=== PATIENT | female | born 1990 | race Two or more races ===

== ENCOUNTER 2024-12-11 11:11 | Emergency (ER) | payer MEDICAID, SELFPAY ==
[2024-12-11 11:44] VITALS: BP 110/73; PULSE 74; RESP 18; TEMP 36.6; O2SAT 96; BMI 29.0
--- NOTE | 2024-12-11 12:01 | XR_ITS ---
Examination: CT abdomen with intravenous contrast CT pelvis with intravenous contrast 2-D coronal reconstructions 2-D sagittal reconstructions Date and time of exam:December 11, 2024 1517 hours INDICATIONS: Onset perineal pain difficulty having a bowel movement several days. CTDI: vol (mGy) 9.86 DLP: (mGycm) 531 Technique: Multiple axial sections of the abdomen and pelvis have been obtained. 64 slice high-resolution scanner used. 3 mm axial sections have been obtained, post intravenous injection 60 cc [id number] 2-D sagittal, coronal reconstructions obtained. Low dose protocols were performed. One or more of the following dose reduction techniques were used; automated exposure control, adjustment of the mA and/or KV according to patient size, use of iterative reconstruction technique. Findings: No focal liver or splenic lesion No gallstones No pancreatic or adrenal mass. No renal or ureteral calculi, no hydronephrosis 12 mm fat-containing umbilical hernia Normal appendix Anteverted uterus Right ovarian 20 mm follicular cyst Urinary bladder intact Right labial low density area, image 231, measuring 18 x 10 mm Osseous structures intact IMPRESSION: 18 x 10 mm right labial low density mass most consistent with small abscess
--- NOTE | 2024-12-11 12:02 | PD.EDADULT ---
ED General RME/HPI General Chief complaint: General Adult/Misc Complain Stated complaint: SEVERE PAIN WHILE HAVING A BM Time Seen by Provider: 12/11/24 11:23 Arrival date/time: 12/11/24 11:11 RME / HPI RME / HPI narrative: 34-year-old female patient came in for evaluation regarding perineal pain and swelling. Patient has been having pain and swelling for several days, associated with painful bowel movement. Patient denies any blood in the stool denies any fever denies any dysuria denies any hematuria denies any other complaints patient was seen by PCP and was advised to do pelvic ultrasound. Still waiting for the ultrasound. Related Data Previous Rx's ?Medication ?Instructions ?Recorded amoxicillin 875 mg-potassium 1 tab PO BID #14 tabs 12/11/24 clavulanate 125 mg tablet ibuprofen 800 mg tablet 800 mg PO TID PRN pain #30 tabs 12/11/24 Allergies Allergy/AdvReac Type Severity Reaction Status Date / Time No Known Allergies Allergy Verified 12/11/24 11:15 Review of Systems Review of Systems Narrative Review of Systems: Review of system reviewed and within normal limits except mentioned in HPI ED Exam Narrative Physical exam: VITAL SIGNS: Reviewed. GENERAL APPEARANCE: Alert and interactive, follows commands, no acute distress, HEAD AND FACE: Non-traumatic. ENT: PERRL, pink conjunctivitis, eyelid no trauma, Mucous membrane moist. NECK: Supple, nontender, no nuchal rigidity. CHEST: No tenderness, no crepitus, no paradoxical movement, no retractions. LUNGS: Clear, well ventilated, symmetric, no rales, no wheezing, no ronchi, no stridor, good breath sounds bilaterally. HEART: Regular rate, regular rhythm, no murmur, no gallops. ABDOMEN: Soft, positive bowel sounds, nondistended, no guarding, nontender, no rebound, no masses, RECTAL: Deferred. GENITAL: Pelvic exam was done by me with a female nurse around all the time, patient is having perineal tenderness, no cyanosis noted no redness noted, palpable swelling noted. NEUROLOGICAL: Gross motor function intact sensory function intact, Appropriate for age. MUSCULOSKELETAL: low back nontender, full range of motion. EXTREMITIES: Nontender, full range of motion. SKIN: Color pink, dry, no rash, no lacerations, no abrasions, no contusions. LYMPHATICS: Deferred. Course Quality Measures none Orders Category Date Time Status CT Screening NOW Care 12/11/24 12:[address] abdomen pelvis w con Stat Exams 12/11/24 12:01 Completed CBC Stat Lab 12/11/24 12:35 Completed Comprehensive Metabolic Panel Stat Lab 12/11/24 12:35 Completed HCG Qualitative,Urine Stat Lab 12/11/24 12:22 Completed Prothrombin Time with INR Stat Lab 12/11/24 12:35 Completed UA, C/S IF [Urinalysis, C/S if Indicated] Stat Lab 12/11/24 12:22 Completed Doxycycline Inj [Vibramycin Inj] 100 mg Med 12/11/24 16:21 Active Sodium Chloride 0.9% (Pop) [NS 0.9% mini bag] 100 ml IV X1 Vital Signs Vital signs: Vital Signs Temperature 97.8 F 12/11/24 11:44 Pulse Rate 74 12/11/24 11:44 Respiratory Rate 18 12/11/24 11:44 Blood Pressure 110/73 12/11/24 11:44 Pulse Oximetry (%) 96 12/11/24 11:44 Oxygen Delivery Method Room Air 12/11/24 11:44 Discharge Plan Plan Patient Disposition: HOME (Self Care) Discharge Disposition comment: Stable Prescriptions/Referrals Prescriptions/Med Rec: New amoxicillin-pot clavulanate 875-125 mg tablet 1 tab PO BID Qty: 14 0RF ibuprofen 800 mg tablet 800 mg PO TID PRN (Reason: pain) Qty: 30 0RF Referrals: Katie Foster FNP ([facility]) [Primary Care Provider] - In 1 week Problem List Clinical Impression: Abscess, vagina Patient/Caregiver Discharge Instructions Discharge Activity: activity as tolerated Education Materials: ED Fracture, Finger, Open Additional Instructions: Thank you for the opportunity for serving you today. You are stable for discharged . You are advised to: Follow-up with [facility], Dr Townsend, please call ahead for appointment tomorrow morning Return to ED for worsening of symptoms Increase oral fluids Take medication as prescribed Hot sitz bath, for 15 minutes 3 times a day as needed or apply warm compress for 15 minutes 3 times a day as needed Print Language: Telugu Stand Alone Forms: Jael Award Info., Patient Portal Info Letter LISSETTE/PHOEBE Supervising Physician LISSETTE/PHOEBE Supervising Physician: MD Valentin MDM Narrative MDM hospital course: 34-year-old female patient came in for evaluation regarding perineal pain and swelling. Patient has been having pain and swelling for several days, associated with painful bowel movement. Patient denies any blood in the stool denies any fever denies any dysuria denies any hematuria denies any other complaints patient was seen by PCP and was advised to do pelvic ultrasound. Still waiting for the ultrasound. Reports workup given unremarkable urinalysis no UTI. CT scan of the abdomen and pelvis showed 8 x 10 mm right labial low density mass most consistent with small abscess I spoke with the Dr Townsend, [facility] [facility] [facility] on-call, who told me that patient could be discharged home on antibiotic and follow-up in the clinic. Medication Administration(s) Medication Administration History Doxycycline Hyclate 100 mg/ (Sodium Chloride) 100 mls @ 100 mls/hr IV X1 ONE Stop: 12/11/24 17:20 Last Admin: 12/11/24 16:30 Dose: 100 mls/hr Documented By: LYSSA
[2024-12-11 12:30] LABS: Collection Type, Urine Catheter
[2024-12-11 12:34] LABS: HCG Qualitative,Urine Negative
[2024-12-11 12:47] LABS: Bacteria,Urine Rare; Bilirubin,Urine Negative (Negative); Blood,Urine 1+ (Negative); Clarity,Urine Hazy (Clear/Hazy); Color,Urine Yellow (Lt Yel-Yel); Culture Indicated,Urine Not Indicated; Glucose, Urine Negative (Negative); Ketones,Urine Negative (Negative); Leukocyte Esterase,Urine Positive (Negative); Nitrite,Urine Negative (Negative); PH,Urine 6.5 (5.0-7.0); Protein,Urine Negative (Neg - Trace); RBC,Urine 5 /hpf (0-3); Specific Gravity,Urine 1.027 (1.001-1.035); Squamous Epithelial Cell,Urine 22 /hpf (0-5); Urobilinogen,Urine Negative mg/dL (0.0-1.0); WBC,Urine 5 /hpf (0-5)
[2024-12-11 13:02] LABS: Basophils % (Auto) 0 % (0-2.5); Eosinophils # (Auto) 0.1 Thou/mm3 (0.0-0.5); Eosinophils % (Auto) 1 % (0-10); Hematocrit 36.9 % (36.0-46.0); Immature Granulocytes % (Auto) 0 % (0-0); Immature Granulocytes Auto 0.02 Thou/mm3 (0.00-0.00); Lymphocytes # (Auto) 2.5 Thou/mm3 (1.0-4.8); Lymphocytes % (Auto) 27 % (10-50); Mean Corpuscular HGB Conc 32.5 g/dl (31.0-37.0); Mean Corpuscular Hemoglobin 28.6 pg (25.0-35.0); Mean Corpuscular Volume 88 fL (80-100); Monocytes # (Auto) 0.5 Thou/mm3 (0.0-0.8); Monocytes % (Auto) 5 % (0-12); Neutrophils # (Auto) 6.3 Thou/mm3 (1.8-7.7); Neutrophils % (Auto) 67 % (37-80); Nucleated Red Blood Cell % 0 /100 WBC (0); Platelet Count 213 Thou/mm3 (140-440); RDW Standard Deviation 41.1 fL (36.4-46.3); White Blood Count 9.4 Thou/mm3 (3.6-11.0)
[2024-12-11 13:20] LABS: Prothrombin Time 10.5 Seconds (9.0-12.2)
[2024-12-11 13:21] LABS: Alanine Aminotransferase 16 U/L (10-49); Albumin, Serum 3.9 gm/dL (3.5-5.0); Albumin/Globulin Ratio 1.6 (1.2-2.2); Alkaline Phosphatase 65 U/L (46-116); Anion Gap 10 (7-16); BUN/Creatinine Ratio 18 Ratio (12-20); Bilirubin,Total 0.5 mg/dL (0.3-1.2); Blood Urea Nitrogen 9 mg/dL (9-23); Calcium 8.6 mg/dL (8.3-10.6); Calcium (Corrected) 8.7 mg/dL (8.5-10.1); Carbon Dioxide 26.9 mMol/L (20.0-31.0); Chloride 105 mMol/L (98-107); Creatinine (Component) 0.5 mg/dL (0.6-1.3); Estimated Creatinine Clearance 170.8 mL/min (>60); Globulin 2.5 gm/dL (2.3-3.5); Glucose 90 mg/dL (74-106); Osmolality,Calculated 281 (275-295); Potassium 3.9 mMol/L (3.4-5.1); Sodium 142 mMol/L (136-145); Total Protein 6.4 gm/dL (5.7-8.2); eGFR > 60 See Note
[2024-12-11 13:41] VITALS: BP 115/70; PULSE 67; RESP 18; TEMP 36.7; O2SAT 100
[2024-12-11 14:48] VITALS: BP 117/74; PULSE 69; RESP 18; TEMP 36.7; O2SAT 100
[2024-12-11 16:08] VITALS: BP 101/66; PULSE 68; RESP 18; TEMP 36.6; O2SAT 98
[2024-12-11] MEDS: DOXYCYCLINE INJ 100 MG in SODIUM CHLORIDE 0.9% (POP) 100 ML IV (16:30)
[2024-12-11 18:03] VITALS: BP 112/69; PULSE 87; RESP 18; TEMP 36.8; O2SAT 99
== END 2024-12-11 18:15 | disposition home or self-care (01) ==
PROVIDERS: Nurse Practitioner Family; Emergency Provider Emergency Medicine; PCP Nurse Practitioner Primary Care
DX: N76.0 Acute vaginitis (principal)
CPT/HCPCS: 36415; 74177; 80053; 81001; 81025; 85025; 85610; 96365; 99285; A4649; J3490; Q9967